=== PATIENT | female | born 1990 | race Caucasian/White ===

== ENCOUNTER → 2018-04-16 09:30 | Outpatient (CLI) | payer OTHER ==
[~2018-04-16 09:30] MED LIST: IBUPROFEN600 MG PO; PERCOCET 5-3251 TAB PO; PRENATAL COMPLE1 TAB OR
== END | disposition home or self-care (01) ==
LOC: D.US 09:30
DX: R10.11 Right upper quadrant pain (principal)

== ENCOUNTER 2018-10-31 19:37 | Outpatient (CLI) | payer OTHER ==
[2018-10-31 20:20] LABS: APPEARANCE CLEAR (CLEAR); BILIRUBIN NEGATIVE (NEGATIVE); COLOR YELLOW (YELLOW); GLUCOSE 50 mg/dL (NEGATIVE); KETONE NEGATIVE (NEGATIVE); NITRITE NEGATIVE (NEGATIVE); PROTEIN NEGATIVE (NEGATIVE); UROBILINOGEN NORMAL (NORMAL)
[2018-10-31 20:24] LABS: UDS - AMPHET NEGATIVE QUAL (NEGATIVE); UDS - BARB NEGATIVE QUAL (NEGATIVE); UDS - BENZO NEGATIVE QUAL (NEGATIVE); UDS - COCAINE NEGATIVE QUAL (NEGATIVE); UDS - OPIATE NEGATIVE QUAL (NEGATIVE); UDS - PCP NEGATIVE QUAL (NEGATIVE); UDS - THC NEGATIVE QUAL (NEGATIVE)
== END 2018-10-31 20:52 | disposition home or self-care (01) ==
LOC: D.LDO 19:37
PROVIDERS: Obstetrics & Gynecology
DX: O26.892 Other specified pregnancy related conditions, second trimester (principal); Z3A.19 19 weeks gestation of pregnancy; M54.5 Low back pain; R10.2 Pelvic and perineal pain

== ENCOUNTER → 2018-12-30 14:54 | Outpatient (CLI) | payer OTHER ==
[2018-12-30 15:27] LABS: APPEARANCE CLEAR (CLEAR); BILIRUBIN NEGATIVE (NEGATIVE); COLOR YELLOW (YELLOW); GLUCOSE NEGATIVE (NEGATIVE); KETONE NEGATIVE (NEGATIVE); NITRITE NEGATIVE (NEGATIVE); PROTEIN NEGATIVE (NEGATIVE); SPECIFIC GRAVITY 1.015 (1.005-1.020); UROBILINOGEN NORMAL (NORMAL)
[2018-12-30 15:28] LABS: EPITHELIAL CELLS 0-5 /hpf (0-5); RED CELLS - URINE NONE SEEN /hpf (0-5); WHITE CELLS - URINE OCC /hpf (0-5)
== END | disposition home or self-care (01) ==
LOC: D.LDO 14:54
PROVIDERS: Obstetrics & Gynecology
DX: O26.893 Other specified pregnancy related conditions, third trimester (principal); Z3A.28 28 weeks gestation of pregnancy; R10.2 Pelvic and perineal pain; M54.5 Low back pain

== ENCOUNTER → 2019-01-04 15:20 | Outpatient (CLI) | payer OTHER | END | disposition home or self-care (01) | LOC: D.LDO 15:20 | PROVIDERS: Obstetrics & Gynecology | DX: O26.893 Other specified pregnancy related conditions, third trimester (principal); Z3A.29 29 weeks gestation of pregnancy ==

== ENCOUNTER → 2019-02-01 16:01 | Outpatient (CLI) | payer OTHER ==
[2019-02-01 17:06] LABS: APPEARANCE CLEAR (CLEAR); BILIRUBIN NEGATIVE (NEGATIVE); COLOR YELLOW (YELLOW); GLUCOSE NEGATIVE (NEGATIVE); KETONE NEGATIVE (NEGATIVE); NITRITE NEGATIVE (NEGATIVE); PROTEIN NEGATIVE (NEGATIVE); UROBILINOGEN NORMAL (NORMAL)
== END | disposition home or self-care (01) ==
LOC: D.LDO 16:01
PROVIDERS: ATTEND Obstetrics & Gynecology
DX: O26.893 Other specified pregnancy related conditions, third trimester (principal); N89.8 Other specified noninflammatory disorders of vagina

== ENCOUNTER 2019-02-02 19:52 | Outpatient (CLI) | payer OTHER | END 2019-02-02 19:59 | disposition home or self-care (01) | LOC: D.LDO 19:52 | PROVIDERS: ATTEND Obstetrics & Gynecology | DX: O60.03 Preterm labor without delivery, third trimester (principal); Z3A.33 33 weeks gestation of pregnancy ==

== ENCOUNTER → 2019-02-10 10:18 | Outpatient (CLI) | payer OTHER | END | disposition home or self-care (01) | LOC: D.LDO 10:18 | PROVIDERS: ATTEND Obstetrics & Gynecology | DX: O26.899 Other specified pregnancy related conditions, unspecified trimester (principal) ==

== ENCOUNTER 2019-02-10 20:37 | Outpatient (CLI) | payer OTHER | END 2019-02-11 09:15 | LOC: D.LDO 20:37 → D.LD 23:47 → D.LDO 02-11 09:15 | PROVIDERS: ATTEND Obstetrics & Gynecology | DX: O26.893 Other specified pregnancy related conditions, third trimester (principal); Z3A.34 34 weeks gestation of pregnancy ==

== ENCOUNTER → 2019-02-18 19:14 | Outpatient (CLI) | payer OTHER ==
[~2019-02-18 19:14] MED LIST changes: +ACETAMINOPHEN325 MG PO; +ADDERALL XR 3030 MG PO; +PRENAVITE1 TAB PO
[2019-02-18 20:15] LABS: APPEARANCE CLEAR (CLEAR); BILIRUBIN NEGATIVE (NEGATIVE); COLOR YELLOW (YELLOW); GLUCOSE NEGATIVE (NEGATIVE); KETONE NEGATIVE (NEGATIVE); NITRITE NEGATIVE (NEGATIVE); PROTEIN TRACE mg/dL (NEGATIVE); SPECIFIC GRAVITY 1.015 (1.005-1.020); UROBILINOGEN NORMAL (NORMAL)
[2019-02-18 20:17] LABS: BACTERIA MODERATE /hpf (NONE SEEN); RED CELLS - URINE OCC /hpf (0-5); WHITE CELLS - URINE 0-5 /hpf (0-5)
== END | disposition home or self-care (01) ==
LOC: D.LDO 19:14
PROVIDERS: ATTEND Obstetrics & Gynecology
DX: O26.893 Other specified pregnancy related conditions, third trimester (principal); Z3A.35 35 weeks gestation of pregnancy

== ENCOUNTER → 2019-02-20 09:36 | Outpatient (CLI) | payer OTHER ==
[2019-02-20 10:43] LABS: APPEARANCE CLEAR (CLEAR); BILIRUBIN NEGATIVE (NEGATIVE); COLOR YELLOW (YELLOW); GLUCOSE NEGATIVE (NEGATIVE); KETONE NEGATIVE (NEGATIVE); NITRITE NEGATIVE (NEGATIVE); PROTEIN NEGATIVE (NEGATIVE); UROBILINOGEN NORMAL (NORMAL)
== END | disposition home or self-care (01) ==
LOC: D.LDO 09:36
PROVIDERS: ATTEND Obstetrics & Gynecology
DX: O26.893 Other specified pregnancy related conditions, third trimester (principal); Z3A.35 35 weeks gestation of pregnancy

== ENCOUNTER 2019-02-22 20:58 | Outpatient (CLI) | payer OTHER ==
[~2019-02-22 20:58] MED LIST changes: -ACETAMINOPHEN325 MG PO; -ADDERALL XR 3030 MG PO
[2019-02-22 21:25] LABS: APPEARANCE CLEAR (CLEAR); BILIRUBIN NEGATIVE (NEGATIVE); COLOR YELLOW (YELLOW); GLUCOSE NEGATIVE (NEGATIVE); KETONE NEGATIVE (NEGATIVE); NITRITE NEGATIVE (NEGATIVE); PROTEIN NEGATIVE (NEGATIVE); UROBILINOGEN NORMAL (NORMAL)
[2019-02-22 21:28] LABS: BACTERIA MODERATE /hpf (NONE SEEN); EPITHELIAL CELLS 0-5 /hpf (0-5); RED CELLS - URINE OCC /hpf (0-5); WHITE CELLS - URINE 0-5 /hpf (0-5)
[2019-02-22] MEDS ORDERED: ADDERALL XR 3030 MG PO (21:46)
[2019-02-22] MEDS ORDERED: ACETAMINOPHEN325 MG PO (21:47)
== END 2019-02-22 22:02 | disposition home or self-care (01) ==
LOC: D.LDO 20:58
PROVIDERS: ATTEND Obstetrics & Gynecology
DX: O26.853 Spotting complicating pregnancy, third trimester (principal); Z3A.36 36 weeks gestation of pregnancy; R10.9 Unspecified abdominal pain

== ENCOUNTER 2019-03-01 01:14 | Outpatient (CLI) | payer OTHER ==
[~2019-03-01 01:14] MED LIST changes: +ACETAMINOPHEN325 MG PO; +ADDERALL XR 3030 MG PO
[2019-03-01 01:34] LABS: APPEARANCE HAZY (CLEAR); COLOR YELLOW (YELLOW)
[2019-03-01 01:35] LABS: BILIRUBIN NEGATIVE (NEGATIVE); GLUCOSE NEGATIVE (NEGATIVE); KETONE NEGATIVE (NEGATIVE); NITRITE NEGATIVE (NEGATIVE); PROTEIN NEGATIVE (NEGATIVE); UROBILINOGEN NORMAL (NORMAL)
== END 2019-03-01 03:40 | disposition home or self-care (01) ==
LOC: D.LDO 01:14
PROVIDERS: ATTEND Obstetrics & Gynecology
DX: O26.893 Other specified pregnancy related conditions, third trimester (principal); Z3A.36 36 weeks gestation of pregnancy

== ENCOUNTER → 2019-03-01 15:00 | Outpatient (CLI) | payer OTHER | END | disposition home or self-care (01) | LOC: D.LDO 15:00 | PROVIDERS: ATTEND Obstetrics & Gynecology | DX: O16.3 Unspecified maternal hypertension, third trimester (principal); Z3A.37 37 weeks gestation of pregnancy ==

== ENCOUNTER 2019-03-08 17:13 | Inpatient (IN) | payer OTHER, MEDICAID ==
[~2019-03-08] VITALS: Ht 172.7 cm; Wt 89.8 kg
[2019-03-08 17:46] VITALS: BP 123/68; Ht 172.7 cm; Wt 89.8 kg
[2019-03-09 06:17] LABS: PROTEIN - URINE 9.5 mg/dL (0.0-11.9)
[2019-03-09 06:49] LABS: HEMATOCRIT 25.7 % (36.0-48.0); HEMOGLOBIN 8.6 g/dL (12-16); MCH 28.2 pg (26.0-34.0); MCHC 33.5 g/dL (31.0-37.0); MCV 84.3 fL (80.0-100.0); MEAN PLATELET VOLUME 12.2 fL (7.4-10.4); RBC 3.05 10x6/uL (4.00-5.40); WBC 14.1 10x3/uL (4.8-10.8)
--- NOTE | 2019-03-09 17:00 | NUR ---
PT CALLS OUT WITH REQUEST FOR PAIN MED, MEDS GIVEN SCANNED TO EMAR. INFANT TO BREAST AT THIS TIME, SIG OTHER AT BEDSIDE. SIDE RAILS UP X 2 WITH CALL LIGHT IN REACH.
--- NOTE | 2019-03-09 18:15 | NUR ---
DENIES NEEDS AT THIS TIME. TOWELS PLACED IN BATHROOM AND PT UNDERSTANDS TO CALL WHEN SHE IS READY TO SHOWER SO THAT IV CAN BE WRAPPED.
--- NOTE | 2019-03-09 19:17 | NUR ---
REPORT TO 7P-7A COMPLETED. PT HAS MULTIPLE VISITORS AT THIS TIME.
--- NOTE | 2019-03-09 19:21 | NUR ---
MULTIPLE VISITOR REMAIN AT BEDSIDE. PT CONVERSING AND LAUGHING WITH VISITORS. DENIES NEEDS AT THIS TIME. BED IN LOW POSITION WITH UPPER SIDE RAILS RAISED X2. CALL LIGHT AND PHONE WITHIN REACH. WILL CONTINUE TO MONITOR AND ASSIST PRN.
--- NOTE | 2019-03-09 20:06 | NUR ---
INFANT AT THIS TIME. DENIES NEEDS. ICE WATER PROVIDED. SPOUSE REMAINS AT BEDSIDE, SUPPORTIVE AND ATTENTIVE TO PT AND . BED IN LOW POSITION WITH UPPER SIDE RAILS RAISED X2. CALL LIGHT AND PHONE WITHIN REACH. WILL CONTINUE TO MONITOR AND ASSIST PRN.
[2019-03-09 20:55] VITALS: BP 128/82
--- NOTE | 2019-03-09 20:55 | NUR ---
SHIFT ASSESSMENT COMPLETED PER FLOWSHEET. C/O ABD CRAMPING 03/09, NORCO GIVEN PER ORDER AND PT REQUEST. VSS. FUNDUS FIRM MIDLINE AND U2, SMALL AMT RUBRA LOCHIA, NO CLOTS NOTED. REPORTS THAT SHE IS VOIDING WITHOUT DIFFICULTY AND USING PERIBOTTLE WITH EACH VOID. PLAN OF CARE REVIEWED WITH PT AND SPOUSE, VERBALIZE UNDERSTANDING AND AGREEMENT, DENY QUESTIONS. BED IN LOW POSITION WITH UPPER SIDE RAILS RAISED X2. CALL LIGHT AND PHONE WITHIN REACH. WILL CONTINUE TO MONITOR AND ASSIST PRN.
--- NOTE | 2019-03-09 21:45 | NUR ---
RESTING WITH EYES CLOSED, RESPIRATIONS REGULAR AND UNLABORED, NO S/S OF DISTRESS NOTED. SPOUSE RESTING ON COUCH. BED IN LOW POSITION WITH UPPER SIDE RAILS RAISED X2. CALL LIGHT AND PHONE WITHIN REACH. WILL CONTINUE TO MONITOR AND ASSIST PRN.
--- NOTE | 2019-03-09 22:10 | NUR ---
REQUESTS TO SHOWER, REFUSES LINEN CHANGE. SPOUSE REPORTS THAT HE WILL REMAIN IN ROOM FOR SHOWER. INSTRUCTED RECORD CLERK SALESPERSON LIGHT USE IN BATHROOM, VERBALIZES UNDERSTANDING. WILL CONTINUE TO MONITOR.
--- NOTE | 2019-03-09 22:46 | NUR ---
OUT OF SHOWER. C/O CONSTANT BACK ACHE 06/08 AND ABD CRAMPING 4-04/08. MOTRIN GIVEN PER ORDER AND REQUEST. REQUEST HEATING PAD. ORDER OBTAINED FOR K-PAD, K-PAD PROVIDED AND INSTRUCTED ON USE, VERBALIZES UNDERSTANDING.
--- NOTE | 2019-03-09 23:30 | NUR ---
BREAST FEEDING . STATES BACK PAIN IS GONE BUT CRAMPING RETURNED WITH AT 5/10, DENIES NEED FOR INTERVENTION AT THIS TIME. ICE WATER PROVIDED. BED IN LOW POSITION WITH UPPER SIDE RAILS RAISED X2. CL AND PHONE WITHIN REACH. WILL CONTINUE TO MONITOR AND ASSIST PRN.
--- NOTE | 2019-03-10 00:42 | NUR ---
C/O PAIN 6/10 CONSTANT BACK ACHE, WITH INTERMITTENT ABD CRAMPING. REPORTS THAT MOTRIN HELPED BUT CRAMPING INCREASED WITH BREAST FEEDING. NORCO GIVEN PER ORDER AND PT REQUEST. INFANT RESTING IN OPEN CRIB AT BEDSIDE. SPOUSE REMAINS AT BEDSIDE, SUPPORTIVE AND ATTENTIVE TO PT AND NEEDS. BED IN LOW POSITION WITH UPPER SIDE RAILS RAISED X2. CALL LIGHT AND PHONE WITHIN REACH. WILL CONTINUE TO MONITOR AND ASSIST PRN.
[2019-03-10 01:28] VITALS: BP 124/76
--- NOTE | 2019-03-10 01:28 | NUR ---
PAIN REASSESSMENT COMPLETED. PT TEARFUL, VERBALIZES NO CHANGE IN PAIN. REPORTED TO DR. DUMAS. ORDERS REC'D FOR CBC TO BE DRAWN AND CALL RESULTS TO HIM. NOTIFIED CHANDA IN LAB, STATES THAT LAB WILL COME TO UNIT AND DRAW.
--- NOTE | 2019-03-10 01:54 | NUR ---
PT AND SPOUSE UPDATED ON PLAN OF CARE AND VERBALIZE AGREEMENT.
--- NOTE | 2019-03-10 02:23 | NUR ---
LAB AT BEDSIDE TO DRAW CBC.
[2019-03-10 02:41] LABS: BASOPHILS 0.2 % (0-2); EOSINOPHILS 0.8 % (0-7); HEMATOCRIT 29.7 % (36.0-48.0); HEMOGLOBIN 10.1 g/dL (12-16); IMMATURE GRANULOCYTES 0.7 % (0-5); LYMPHOCYTES 21.7 % (15-50); MCH 28.5 pg (26.0-34.0); MCV 83.7 fL (80.0-100.0); MEAN PLATELET VOLUME 11.9 fL (7.4-10.4); MONOCYTES 7.4 % (2-11); NEUTROPHILS 69.2 % (40-80); RBC 3.55 10x6/uL (4.00-5.40); RDW 12.8 % (11.5-14.5); WBC 11.4 10x3/uL (4.8-10.8)
[2019-03-10 02:44] LABS: PLATELET COUNT 132 10x3/uL (130-400)
--- NOTE | 2019-03-10 02:52 | NUR ---
DR. DUMAS PAGED WITH IMMEDIATE CALL BACK. CBC RESULTS AND PT MOST RECENT INTERACTION WITH STAFF REPORTED. PER DR. DUMAS CONTINUE WITH CURRENT INTERVENTIONS FOR PAIN.
--- NOTE | 2019-03-10 04:39 | NUR ---
PT AMBULATORY IN [place]. STEADY GAIT NOTED.
--- NOTE | 2019-03-10 04:53 | NUR ---
C/O PAIN 06/08 CONSTANT BACK ACHE AND INTERMITTENT ABD CRAMPING. NORCO AND MOTRIN GIVEN PER ORDER AND PT REQUEST. ICE WATER PROVIDED PER REQUEST. SITTING IN HIGH FOWLERS POSITION PLAYING ON CELL PHONE. DENIES ADDITIONAL NEEDS. INFANT IN OPEN CRIB RESTING QUIETLY AT BEDSIDE. SPOUSE RESTING ON COUCH. BED IN LOW POSITION WITH UPPER SIDE RAILS RAISED X2. CALL LIGHT AND PHONE WITHIN REACH. WILL CONTINUE TO MONITOR AND ASSIST PRN.
--- NOTE | 2019-03-10 05:30 | NUR ---
PAIN REASSESSMENT COMPLETED, 02/06. DENIES NEED FOR ADDITIONAL INTERVENTION AT THIS TIME. RESTING IN OPEN CRIB AT BEDSIDE. EATING CHIPS AT THIS TIME. BED IN LOW POSITION WITH UPPER SIDE RAILS RAISED X2. CALL LIGHT AND PHONE WITHIN REACH. WILL CONTINUE TO MONITOR AND ASSIST PRN.
[2019-03-10 07:14] LABS: BASOPHILS 0.1 % (0-2); EOSINOPHILS 0.9 % (0-7); HEMATOCRIT 30.5 % (36.0-48.0); HEMOGLOBIN 10.4 g/dL (12-16); LYMPHOCYTES 23.3 % (15-50); MCH 28.5 pg (26.0-34.0); MCHC 34.1 g/dL (31.0-37.0); MCV 83.6 fL (80.0-100.0); MEAN PLATELET VOLUME 11.8 fL (7.4-10.4); MONOCYTES 6.6 % (2-11); NEUTROPHILS 68.1 % (40-80); PLATELET COUNT 134 10x3/uL (130-400); RBC 3.65 10x6/uL (4.00-5.40); RDW 13.1 % (11.5-14.5); WBC 10.2 10x3/uL (4.8-10.8)
--- NOTE | 2019-03-10 07:15 | NUR ---
PT RESTING ON RIGHT SIDE WITH EYES CLOSED, RESPIRATION REGULAR AND UNLABORED, NO S/S OF DISTRESS NOTED. REPORT GIVEN TO Ashley GANDHI RN.
[2019-03-10 07:32] LABS: RAPID PLASMA REAGIN Non Reactive (Non Reactive)
--- NOTE | 2019-03-10 08:45 | NUR ---
ATTEMPT TO ROUND ON PT FOR AM ASSESSMENT, PRIOR TO KNOCKING ON DOOR LOUD SHOUTING COULD BE HEARD, WHEN NURSE KNOCKS PT SIG OTHER ASK FOR A MINUTE BEFORE ENTERING, THIS RN ANNOUNCES WHO SHE IS AND AGAIN SIG OTHER REQUEST A MIN, THAN COMES TO DOOR AND ASK IF NURSE COULD COME BACK IN 20-30 MINUTES. VERIFIED WITH PT THAT SHE WAS OK AND VERBAL CONSENT THAT SHE WAS IS RECIEVED.
--- NOTE | 2019-03-10 08:46 | NUR ---
Margot Ronquillo 03/10/19 O: CLC enters room for consultation. Room is dark with dim lights, patient is sleeping in bed, did not wake when entered room. Infant is sleeping in crib at bedside, FOB lying on sofa awake and states patient is sleeping, she is tired. CLC left patient undisturbed. Cm Dumont, CLC
--- NOTE | 2019-03-10 09:30 | NUR ---
AM ASSESSMENT COMPLETED, PT IS ALONE AT THIS TIME AND EXPRESSES THAT SHE IS SORRY FOR EARLIER AND SHE IS JUST REALLY TIRED AND NEEDS SOME SLEEP. WILL CALL FOR NURSE IF NEEDED. SIDE RAILS UP X 2 CALL LIGHT IN REACH.
--- NOTE | 2019-03-10 11:50 | NUR ---
Dr Marc on unit and in to visit with pt. she denies pain when questioned by md and is agreeable to discharge with infant today.
--- NOTE | 2019-03-10 12:15 | NUR ---
PT FAMILY MEMBER TO NURSE BAGGAGE PORTER'S OFFICE TO REPORT CONCERNS OF PT'S MENTAL STATUS. FAMILY MEMBER REPORTS PT HAS VERBALIZED A THREAT TO KILL HERSELF AND HER RECENTLY AND HAS SENT TEXT MESSAGES TO SUCH TO FOB. THIS RN ENSURE THAT DR DUMAS WILL BE NOTIFIED AND THE REPORT WILL BE ESCALATED TO ALL THAT NEED TO BE AWARE.
--- NOTE | 2019-03-10 12:56 | NUR ---
REPORT GIVEN TO Lisa GANDHI RN FOR PRIMARY NURSE TO NOTIFY DR DUMAS.
--- NOTE | 2019-03-10 13:00 | NUR ---
Dr Marc notified with report given of recent info about pt possible threat to harm herself &/or baby. Orders received to contact/consult with case management and/or psych consult. Spoke with Nahomy in case management, order than place for phys consult attn psych. She (Nahomy) is assisting by taking order to [facility] and speaking to MD in that area.
--- NOTE | 2019-03-10 14:22 | NUR ---
PAIN MEDS GIVEN PER PT REQUEST. SHE IS AT THIS TIME, SIDE RAILS UP X 2 WITH PHONE AND CALL LIGHT IN REACH.
--- NOTE | 2019-03-10 15:30 | NUR ---
DR TRINIDAD ON UNIT WITH CASE MANAGEMENT, THIS RN TO ROOM WITH HIM FOR HIS ASSESSMENT PER MD REQUEST. UPON ENTERING ROOM, PT IS ALONE WITH INFANT TO BREAST AND WATCHING TV. SHE CALMLY LISTENS DR TRINIDAD EXPLAINS WHY HE HAS BEEN CONSULTED, PLEASE SEE MD NOTE ABOUT HIS ASSESSMENT.
--- NOTE | 2019-03-10 16:30 | NUR ---
PT TAKEN OUT WITH INFANT IN [place], HOME BY PRIVATE CAR WITH FATHER OF BABY.
--- NOTE | 2019-03-10 17:00 | NUR ---
VERBAL AND WRITTEN DISCHARGE INSTRUCTIONS GONE OVER WITH PT, SHE VERBALLY STATES HER UNDERSTANDING TO INFO/MEDS/S&S OF INFECTION AND WHAT TO DO IF SHE HAS ANY QUESTIONS OR CONCERNS AFTER SHE IS HOME. WRITTEN SCRIPT PROVIDED FOR MOTRIN 600MG. DRESSING AT THIS TIME AND THAN WILL SECURE IN [place] AND CALL NURSERY TO VERIFY. WILL CALL WHEN READY TO LEAVE.
--- NOTE | 2019-03-10 17:30 | NUR ---
PT TAKEN OUT WITH INFANT IN [place], HOME BY PRIVATE CAR WITH FATHER OF BABY.
--- NOTE | 2019-03-10 19:54 | NUR ---
PT RETURNS TO UNIT FOR RHOGHAM INJECTION PER MD ORDERS. PT ADMINISTERED RHOGHAM 300MG IM TO LEFT DELTOID, BANDAID APPLIED, TOLERATES PROCEDURE WELL.
--- NOTE | 2019-03-12 12:33 | CN ---
PATIENT NAME:FRANCES ESPINOSA MEDICAL RECORD: [id number] : 90 LOCATION:[id number] ADMIT DATE: 03/08/19 ACCOUNT: [id number] CONSULTING PHYSICIAN: GUCCI TRINIDAD MD REFERRING PHYSICIAN: KAIT DUMAS MD DATE OF CONSULTATION: 03/10/2019 IDENTIFYING DATA: The patient is 28 years old and admitted to the hospital secondary to needing to deliver a baby. CHIEF COMPLAINT: None. HISTORY OF PRESENT ILLNESS: I have gotten information almost immediately after hanging up the phone and have evaluated the patient. It seems that the father of this child and the patient, Frances have argued and have broken up unfortunately. The paternal grandmother reported to our nursing staff that she was concerned that Frances was going to go home and kill herself and the baby. I have interviewed Frances and disagree. Frances has an euthymic mood and appropriate affect, is fully oriented and passes all questions on her mental status exam fine. She has never made any statement like this. Her former boyfriend who is the father of this child comes in and says that they have argued, that she has lost control of herself, but when questioned about this, it seems that Frances has told him to leave and cursed him. She has never made any statements about wanting to hurt herself or the baby. He was asked directly is he concerned about the safety of the baby or Frances and he says no. He has no concerns about their safety. ASSESSMENT: Adjustment disorder with mixed emotional features. PLAN: Frances is not acutely dangerous to herself or the baby. She did score an 8 on her depression screening, but I still do not think she is clinically depressed. I am not sure if she answered all the questions correctly. She has ADHD and is treated for that and has not had her psychostimulant medication and that is subtly obvious when I talked to her. I see no evidence of an acute mood disorder. No evidence of acute or direct dangerousness. The patient has her baby at her breast while I am in the room speaking with her and it is clear that she loves the child, has bonded with the child and is showing the child affection. I see no impediment to releasing her and the child and see no reason or purpose for an outpatient mental health followup. TRANSINT:[id number] Voice Confirmation ID: [id number] DOCUMENT ID: [id number] GUCCI TRINIDAD MD at 1233 CC: [id number] DICTATION DATE: 03/10/19 1548 RN RESIDENTIAL: 03/10/19 1604 DIS IN 03/10/19 [place] [id number] [place] [id number]
== END 2019-03-10 19:54 | disposition home or self-care (01) | DRG 807 ==
LOC: D.LD 17:13
PROVIDERS: ADMIT Obstetrics & Gynecology; ATTEND Obstetrics & Gynecology
PROC: 10907ZC Drainage of Amniotic Fluid, Therapeutic from Products of Conception, Via Natural or Artificial Opening (ICD-10-PCS; 2019-03-08)
PROC: 10E0XZZ Delivery of Products of Conception, External Approach (ICD-10-PCS; principal; 2019-03-09)
DX: O13.4 Gestational [pregnancy-induced] hypertension without significant proteinuria, complicating childbirth (principal); Z37.0 Single live birth; Z3A.38 38 weeks gestation of pregnancy; O99.344 Other mental disorders complicating childbirth; F43.29 Adjustment disorder with other symptoms

== ENCOUNTER 2020-07-01 20:26 | Emergency (ER) | payer OTHER ==
[~2020-07-01] VITALS: Ht 172.7 cm; Wt 72.7 kg
[2020-07-01 20:36] VITALS: Ht 172.7 cm; Wt 72.7 kg
[2020-07-01 21:26] LABS: BASOPHILS 0.2 % (0-2); EOSINOPHILS 1.2 % (0-7); HEMATOCRIT 42.4 % (36.0-48.0); HEMOGLOBIN 14.5 g/dL (12-16); IMMATURE GRANULOCYTES 0.2 % (0-5); LYMPHOCYTES 32.2 % (15-50); MCH 30.2 pg (26.0-34.0); MCHC 34.2 g/dL (31.0-37.0); MCV 88.3 fL (80.0-100.0); MEAN PLATELET VOLUME 10.8 fL (7.4-10.4); MONOCYTES 14.3 % (2-11); NEUTROPHILS 51.9 % (40-80); RDW 11.9 % (11.5-14.5); WBC 4.9 10x3/uL (4.8-10.8)
[2020-07-01 21:40] LABS: CALC OSMOLALITY 279 mosm/kg (275-300); CALCIUM 8.8 mg/dL (8.5-10.1); CARBON DIOXIDE 27.8 mmol/L (21.0-32.0); CHLORIDE - SERUM 104 mmol/L (98-107); CREATININE - SERUM 0.9 mg/dL (0.6-1.3); GLUCOSE 94 mg/dL (74-106); POTASSIUM - SERUM 3.7 mmol/L (3.5-5.1); SODIUM 140 mmol/L (136-145); UREA NITROGEN 14 mg/dL (7-18); eGFR NON AFRICAN AMERICAN 78 mL/min (90-120)
[2020-07-01 21:40] LABS: BILIRUBIN NEGATIVE (NEGATIVE); GLUCOSE NEGATIVE (NEGATIVE); KETONE NEGATIVE (NEGATIVE); NITRITE NEGATIVE (NEGATIVE); UROBILINOGEN NORMAL (NORMAL)
[2020-07-01 21:47] LABS: ALBUMIN 3.9 g/dL (3.4-5.0); ALKALINE PHOSPHATASE 68 U/L (30-120); ALT (SGPT) 16 U/L (10-68); BILIRUBIN - TOTAL 0.89 mg/dL (0.2-1.3); PROTEIN - SERUM 7.5 g/dL (6.4-8.2)
[2020-07-01 21:47] LABS: HCG URINE NEGATIVE (NEGATIVE)
[2020-07-01 21:50] LABS: PLATELET COUNT 164 10x3/uL (130-400)
[2020-07-01] MEDS ORDERED: DECADRON4 MG PO (22:38)
[2020-07-01] MEDS ORDERED: ZITHROMAX TRI-500 MG PO (22:38)
[2020-07-01] MEDS ORDERED: CLARITIN 10 MG10 MG PO (22:38)
[2020-07-01 22:56] VITALS: BP 112/71
== END 2020-07-01 22:57 | disposition home or self-care (01) ==
LOC: D.ER 20:26
PROVIDERS: Emergency Medicine
DX: U07.1 COVID-19 (principal); R50.9 Fever, unspecified; R53.81 Other malaise; R11.0 Nausea; R19.7 Diarrhea, unspecified

== ENCOUNTER 2021-02-15 07:23 | Day surgery (SDC) | payer OTHER ==
[2021-02-12 17:08] LABS: BASOPHILS 0.1 % (0-2); EOSINOPHILS 1.1 % (0-7); HEMOGLOBIN 12.9 g/dL (12-16); IMMATURE GRANULOCYTES 0.1 % (0-5); LYMPHOCYTE ABS# 1.75 10x3/uL (1.18-3.74); LYMPHOCYTES 23.1 % (15-50); MCHC 33.9 g/dL (31.0-37.0); MCV 88.4 fL (80.0-100.0); MEAN PLATELET VOLUME 10.3 fL (7.4-10.4); MONOCYTES 6.2 % (2-11); NEUTROPHIL ABS# 5.24 10x3/uL (1.56-6.13); NEUTROPHILS 69.4 % (40-80); PLATELET COUNT 210 10x3/uL (130-400); RDW 12.1 % (11.5-14.5); WBC 7.6 10x3/uL (4.8-10.8)
[~2021-02-15] VITALS: Ht 172.7 cm; Wt 69.9 kg
[~2021-02-15 07:23] MED LIST changes: +ADDERALL 10 MG10 MG PO; +ATIVAN0.5 MG PO; +BACLOFEN10 MG PO; +CLARITIN 10 MG10 MG PO; +DECADRON4 MG PO; +MOBIC7.5 MG PO; +ULTRAM50 MG PO; +ZITHROMAX TRI-500 MG PO
[2021-02-15 09:04] VITALS: BP 121/68; Ht 172.7 cm; Wt 69.9 kg
[2021-02-15 09:14] LABS: HCG URINE NEGATIVE (NEGATIVE)
--- NOTE | 2021-02-15 12:51 | NUR ---
1230 MEDICATED FOR PAIN
--- NOTE | 2021-02-15 13:19 | NUR ---
0646 DR SAN CALLED PT STATED HER PAIN IS 7/10. WILL RE MEDICATE
--- NOTE | 2021-02-15 17:41 | NUR ---
1230 MEDICATED FOR PAIN. 1330 PT STATED SHE IS STILL IN PAIN AND HER PAIN LEVEL IS A 06/08. ANESTHESIA CALLED FOR REPEAT OF NORCO 5MG. 1420 IV REMOVED PAIN A 01/09 1425 PT DISCHARGED DRESSING TO UPPER ABDOMEN REINFORCED. SMAL AMT OF BLOOD NOTED.
--- NOTE | 2021-02-23 19:56 | OP ---
PATIENT NAME: FRANCES ESPINOSA MEDICAL RECORD: [id number] :90 LOCATION:[facility] ADMISSION DATE: SURGEON: KAIT MARC MD DATE OF OPERATION: 02/15/2021 PREOPERATIVE DIAGNOSIS: Multiparity, the patient desires permanent sterility. POSTOPERATIVE DIAGNOSIS: Multiparity, the patient desires permanent sterility. PROCEDURE: Laparoscopic tubal ligation via bipolar cautery, hysteroscopy and NovaSure endometrial ablation. SURGEON: Kait Marc ANESTHESIA: General endotracheal. INTRAVENOUS FLUIDS: Per anesthesia record. ESTIMATED BLOOD LOSS: Minimal. COMPLICATIONS: None apparent. FINDINGS: 1. Grossly normal-appearing fallopian tubes, ovaries and uterus. 2. Grossly normal external genitalia. 3. Grossly normal-appearing cervix and proliferative endometrium. PROCEDURE IN DETAIL: The patient was taken to the operating room where general anesthesia was achieved without any difficulty. The patient was then prepped and draped in normal sterile fashion in the dorsal lithotomy position in the [facility]. At this point, the vagina was prepped with Betadine and the belly was prepped with chlorhexidine. Following draping, a 5-mm incision was made infraumbilically and the intraperitoneal space was entered using the 5-mm bladeless trocar under direct visualization of the laparoscope. Following removal of the introducer and placement of the camera, opening pressure was found to be less than 8 mmHg. The patient was insufflated. Intraperitoneal placement was confirmed by visualization with the scope. At this point, a second 5-mm port was placed approximately 5 cm superior to the pubic symphysis in the midline under direct visualization of the laparoscope. Survey of the abdomen and pelvis was performed laparoscopically. Attention was then turned to the fallopian tubes, where an approximate 5-6 cm portion of the mid fallopian tube was grasped with the Kleppinger bipolar cautery and completely desiccated. Good hemostasis was noted from both surgical sites. The patient was partially desufflated and again no bleeding was noted from either tubal sterilization area. The patient was fully desufflated and the 2 trocars were removed. The skin was repaired with 3-0 Monocryl in interrupted fashion times 2. Attention was then turned to the vagina. The patient initially had a straight catheterization and approximately 100 mL of straw-colored urine. A Graves speculum was placed into the vagina and the cervix was identified, grasped on its anterior lip with a single-tooth tenaculum. The patient was then sounded to approximately 9 cm, dilation to approximately 6-mm was performed and hysteroscopy was performed of the grossly normal-appearing proliferative endometrium. The calculations of the cervical and uterine length were performed and entered into the NovaSure machine. The patient was dilated to approximately 9-mm and then the NovaSure fan was inserted into the uterus and deployed per OPERATIVE REPORT [id number] FRANCES ESPINOSA protocol. The collar was advanced towards the cervical opening and initial pressure check and vacuum check were found to be within normal limits. Full burn cycle was performed and then the NovaSure device was removed using the bow and arrow method. The tenaculum was removed. A small area of bleeding from one of the tenaculum site was repaired with a 2-0 Vicryl in interrupted [id number] fashion with good hemostasis noted afterwards. The patient tolerated the procedure well and was transferred to postanesthesia recovery stable without incident. TRANSINT:[id number] Voice Confirmation ID: [id number] DOCUMENT ID: [id number] KAIT MARC MD at 1956 CC: [id number] DICTATION DATE: 02/23/21 1328 COOLER OPERATOR: 02/23/21 1508 [facility] 02/15/21 [facility] [address] [place] [address]
== END 2021-02-15 14:25 | disposition home or self-care (01) ==
LOC: D.OPS 07:23
PROVIDERS: ATTEND Obstetrics & Gynecology
DX: Z30.2 Encounter for sterilization (principal); Z64.1 Problems related to multiparity; N92.0 Excessive and frequent menstruation with regular cycle